=== PATIENT | male | born 1990 | race Hispanic/Latino ===

== ENCOUNTER 2019-10-01 20:59 | Emergency (ER) | payer SELFPAY ==
--- NOTE | 2019-10-01 22:48 | ER ---
Nurse's Notes [facility] Name: Derick Harris Age: 28 yrs Sex: Male : 1990 Arrival Date: 10/01/2019 Time: 21:00 Bed 12 Private MD: Diagnosis: Sprain of ankle Presentation: 10/01 21:42 Presenting complaint: Patient states: About 45 minutes ago pt reports dropping a ea toolbox on his right ankle. Reports swelling to area. Reports he fell on his left side and hurt his left shoulder. Transition of care: patient was not received from another setting of care. Onset of symptoms was October 01, 2019. Risk Assessment: Do you want to hurt yourself or someone else? Patient reports no desire to harm self or others. Initial Sepsis Screen: Does the patient meet any 2 criteria? No. Patient's initial sepsis screen is negative. Does the patient have a suspected source of infection? No. Patient's initial sepsis screen is negative. Care prior to arrival: None. 21:42 Method Of Arrival: Wheelchair ea 21:42 Acuity: PEDRO 4 ea Triage Assessment: 21:45 General: Appears uncomfortable, Behavior is calm, cooperative, appropriate for age. ea Pain: Complains of pain in right ankle. Historical: - Home Meds: 21:44 None [Active]; ea - PMHx: 21:44 None; ea - PSHx: 21:44 TESTICLE SX; ea - Immunization history:: Adult Immunizations up to date. - Social history:: Smoking status: Patient/guardian denies using tobacco. - Ebola Screening: : Patient denies travel to an Ebola-affected area in the 21 days before illness onset. Screenin:43 Abuse screen: Denies threats or abuse. Nutritional screening: No deficits noted. ea Tuberculosis screening: No symptoms or risk factors identified. Fall Risk None identified. Assessment: 22:23 General: Appears in no apparent distress. uncomfortable, Behavior is calm, cooperative. bb Pain: Complains of pain in right ankle. Neuro: Level of Consciousness is awake, alert, obeys commands, Oriented to person, place, time, situation. Cardiovascular: No deficits noted. Respiratory: Respiratory effort is even, unlabored, Respiratory pattern is regular. GI: No signs and/or symptoms were reported involving the gastrointestinal system. Derm: Skin is pink, warm \T\ dry. Musculoskeletal: Circulation, motion, and sensation intact. Swelling present in right ankle Reports pain in right ankle. 23:06 Reassessment: Patient is alert, oriented x 3, equal unlabored respirations, skin bb warm/dry/pink. walking boot applied pt verbalized understanding of and agrees to plan of care discharge instructions given pt ambulated with steady gait to exit accompanied by family. Vital Signs: 21:44 BP 143 / 92; Pulse 90; Resp 18; Temp 99.4; Pulse Ox 100% ; Weight 99.79 kg; Height 5 ea ft. 6 in. (167.64 cm); Pain 6/10; 23:01 BP 142 / 91; Pulse 93; Resp 18; Temp 98.8(O); Pulse Ox 100% ; jp3 21:44 Body Mass Index 35.51 (99.79 kg, 167.64 cm) ea ED Course: 21:00 Patient arrived in ED. as 21:11 Lorelei Nichols F[facility]-C [facility]. snw 21:11 Davis Rubio MD is Attending Physician. snw 21:43 Triage completed. ea 22:24 Arm band placed on Patient placed in an exam room. Family accompanied patient. bb 22:24 Patient has correct armband on for positive identification. bb 22:31 XRAY Ankle RIGHT 3 view In Process Unspecified. EDMS 23:01 3D boot applied to right foot. jp3 23:08 No provider procedures requiring assistance completed. Patient did not have IV access bb during this emergency room visit. Administered Medications: 23:03 Drug: UltRAM 50 mg Route: PO; bb 23:07 Follow up: Response: No adverse reaction bb Outcome: 22:47 Discharge ordered by . snw 23:08 Discharged to home ambulatory, with family. bb 23:08 Condition: stable 23:08 Discharge instructions given to patient, Instructed on discharge instructions, follow up and referral plans. medication usage, Demonstrated understanding of instructions, follow-up care, medications, Prescriptions given X 1. 23:08 Patient left the ED. bb Signatures: Dispatcher [employer] EDMS Lorelei Nichols FNP-C FNP-Margaret Billy Brenda, RN RN bb King, Guadalupe, RN RN ea Pisarski, Daniel jp3
--- NOTE | 2019-10-01 22:49 | EDPHYS ---
Physician Documentation [facility] Name: Derick Harris Age: 28 yrs Sex: Male : 1990 Arrival Date: 10/01/2019 Time: 21:00 Bed 12 Private MD: TYE Physician Davis Rubio HPI: 10/01 22:56 This 28 yrs old Male presents to ER via Wheelchair with complaints of Ankle snw Injury. 22:56 The patient presents with pain, swelling, tenderness. The complaints affect the right snw ankle. Onset: The symptoms/episode began/occurred today. Context: The problem was sustained at work, resulted from a mis-step by the patient, at work avoiding falling heavy object, The mechanism of injury involved inversion of the affected ankle. The patient can partially bear weight on the affected extremity. the patient is able to ambulate. Associated signs and symptoms: Pertinent positives: swelling, of the right ankle. Severity of symptoms: At their worst the symptoms were moderate. The patient has experienced a previous episode, to medial ankle. It is unknown whether or not the patient has recently seen a physician. Historical: - Home Meds: 21:44 None [Active]; ea - PMHx: 21:44 None; ea - PSHx: 21:44 TESTICLE SX; ea - Immunization history:: Adult Immunizations up to date. - Social history:: Smoking status: Patient/guardian denies using tobacco. - Ebola Screening: : Patient denies travel to an Ebola-affected area in the 21 days before illness onset. ROS: 22:55 Constitutional: Negative for fever, chills, and weight loss, Eyes: Negative for injury, snw pain, redness, and discharge, ENT: Negative for injury, pain, and discharge, Neck: Negative for injury, pain, and swelling, Cardiovascular: Negative for chest pain, palpitations, and edema, Respiratory: Negative for shortness of breath, cough, wheezing, and pleuritic chest pain, Abdomen/GI: Negative for abdominal pain, nausea, vomiting, diarrhea, and constipation, Back: Negative for injury and pain, : Negative for injury, bleeding, discharge, and swelling, Skin: Negative for injury, rash, and discoloration, Neuro: Negative for headache, weakness, numbness, tingling, and seizure. 22:55 MS/extremity: Positive for injury or acute deformity, pain, swelling, tenderness, of the right ankle. Exam: 22:50 Constitutional: This is a well developed, well nourished patient who is awake, alert, snw and in no acute distress. Head/Face: Normocephalic, atraumatic. Eyes: Pupils equal round and reactive to light, extra-ocular motions intact. Lids and lashes normal. Conjunctiva and sclera are non-icteric and not injected. Cornea within normal limits. Periorbital areas with no swelling, redness, or edema. ENT: Nares patent. No nasal discharge, no septal abnormalities noted. Tympanic membranes are normal and external auditory canals are clear. Oropharynx with no redness, swelling, or masses, exudates, or evidence of obstruction, uvula midline. Mucous membranes moist. Neck: Trachea midline, no thyromegaly or masses palpated, and no cervical lymphadenopathy. Supple, full range of motion without nuchal rigidity, or vertebral point tenderness. No Meningismus. Chest/axilla: Normal chest wall appearance and motion. Nontender with no deformity. No lesions are appreciated. Cardiovascular: Regular rate and rhythm with a normal S1 and S2. No gallops, murmurs, or rubs. Normal PMI, no JVD. No pulse deficits. Respiratory: Lungs have equal breath sounds bilaterally, clear to auscultation and percussion. No rales, rhonchi or wheezes noted. No increased work of breathing, no retractions or nasal flaring. Abdomen/GI: Soft, non-tender, with normal bowel sounds. No distension or tympany. No guarding or rebound. No evidence of tenderness throughout. Back: No spinal tenderness. No costovertebral tenderness. Full range of motion. Skin: Warm, dry with normal turgor. Normal color with no rashes, no lesions, and no evidence of cellulitis. Neuro: Awake and alert, GCS 15, oriented to person, place, time, and situation. Cranial nerves II-XII grossly intact. Motor strength 5/5 in all extremities. Sensory grossly intact. Cerebellar exam normal. Normal gait. Psych: Awake, alert, with orientation to person, place and time. Behavior, mood, and affect are within normal limits. 22:50 Musculoskeletal/extremity: Extremities: grossly normal except: noted in the right ankle: pain, swelling, tenderness, Circulation is intact in all extremities. Sensation intact. Vital Signs: 21:44 BP 143 / 92; Pulse 90; Resp 18; Temp 99.4; Pulse Ox 100% ; Weight 99.79 kg; Height 5 ea ft. 6 in. (167.64 cm); Pain 6/10; 23:01 BP 142 / 91; Pulse 93; Resp 18; Temp 98.8(O); Pulse Ox 100% ; jp3 21:44 Body Mass Index 35.51 (99.79 kg, 167.64 cm) ea MDM: 22:03 Patient medically screened. snw 22:54 Data reviewed: vital signs, nurses notes. Data interpreted: Pulse oximetry: on room air snw is 100 %. Interpretation: normal. Counseling: I had a detailed discussion with the patient and/or guardian regarding: the historical points, exam findings, and any diagnostic results supporting the discharge/admit diagnosis, the presence of at least one elevated blood pressure reading (>120/80) during this emergency department visit, radiology results, the need for outpatient follow up, to return to the emergency department if symptoms worsen or persist or if there are any questions or concerns that arise at home. Special discussion: I have referred the patient to see his PCP for further evaluation of high blood pressure. Based on the history and exam findings, there is no indication for further emergent testing or inpatient evaluation. I discussed with the patient/guardian the need to see the orthopedic surgeon for further evaluation of the symptoms. I discussed with the patient/guardian the need to see the primary care provider for further evaluation of the symptoms. 10/01 21:55 Order name: XRAY Ankle RIGHT 3 view bb 10/01 22:46 Order name: Walking boot; Complete Time: 23:02 snw Administered Medications: 23:03 Drug: UltRAM 50 mg Route: PO; bb 23:07 Follow up: Response: No adverse reaction bb Disposition: 10/02 07:49 Co-signature as Attending Physician, Davis Rubio MD I agree with the assessment and zelalem plan of care. Disposition: 10/01/19 22:47 Discharged to Home. Impression: Sprain of ankle. - Condition is Stable. - Discharge Instructions: Ankle Sprain, Cast or Splint Care, Adult, Hypertension, Ankle Pain, Cryotherapy. - Prescriptions for Diclofenac Sodium 75 mg Oral Tablet Sustained Release - take 1 tablet by ORAL route 2 times per day; 30 tablet. - Work release form, Medication Reconciliation Form, Thank You Letter, Antibiotic Education, Prescription Opioid Use form. - Follow up: Private Physician; When: 2 - 3 days; Reason: Recheck today's complaints, Continuance of care, Re-evaluation by your physician. Follow up: Emergency Department; When: As needed; Reason: Worsening of condition. Signatures: Dispatcher [employer] [facility] Davis Rubio MD MD cha Therrien, Shelly, MULTIMEDIA PROGRAMMER-C MULTIMEDIA PROGRAMMER-Csnw Jaida Lucas, RN RN bb Guadalupe King, RN RN ea Corrections: (The following items were deleted from the chart) 10/01 22:20 22:04 Shoulder Left 2 View+RAD.RAD.BRZ ordered. [facility] 23:08 22:47 10/01/2019 22:47 Discharged to Home. Impression: Sprain of ankle. Condition is bb Stable. Forms are Medication Reconciliation Form, Thank You Letter, Antibiotic Education, Prescription Opioid Use. Follow up: Private Physician; When: 2 - 3 days; Reason: Recheck today's complaints, Continuance of care, Re-evaluation by your physician. Follow up: Emergency Department; When: As needed; Reason: Worsening of condition. snw
[2019-10-01] MEDS ORDERED: TRAMADOL HCL 50 MG TAB ONE (23:02)
[2019-10-01 23:29] VITALS: O2SAT 100
[2019-10-01 23:30] VITALS: BP 142/91; TEMP 98.8
--- NOTE | 2019-10-02 08:06 | RAD REPORT ---
EXAM DESCRIPTION: RAD - Ankle Right 3 View - 10/01/2019 10:29 pm CLINICAL HISTORY: PAIN COMPARISON: Ankle Right 3 View dated 09/23/2015 FINDINGS: Soft tissue swelling is seen along the lateral malleolus. No fracture or dislocation prese nt. Small posterior calcaneal spur.
== END 2019-10-01 23:08 | disposition home or self-care (01) ==
LOC: ER 20:59
DX: S93.401A Sprain of unspecified ligament of right ankle, initial encounter (principal); W20.8XXA Other cause of strike by thrown, projected or falling object, initial encounter; Y93.89 Activity, other specified; Y92.9 Unspecified place or not applicable; Y99.0 Civilian activity done for income or pay
CPT/HCPCS: 99284